=== PATIENT | female | born 2000 | race Caucasian/White ===

== ENCOUNTER 2018-04-15 12:03 | Outpatient (CLI) | payer OTHER, SELFPAY ==
--- NOTE | 2018-04-15 11:45 | DI.RAD_ITS ---
SYMPTOMS/DIAGNOSIS: FELL BACK ON ICE SITTING DOWN 1 WEEK AGO, LOW BACK PAIN, M54.5, G89.29 OTHER CHRONIC PAIN, H/O LOWER BACK INJURY LUMBAR SPINE: AP, lateral and bilateral oblique views. There are five lumbar type vertebral bodies. There is normal alignment. No acute fracture or subluxation is seen. The bones are normally mineralized. The disc spaces are well maintained. IMPRESSION: No acute fracture or subluxation in the lumbar spine.
== END 2018-04-15 12:23 ==
PROVIDERS: PCP Pediatrics; Visit Provider Pediatrics
DX: M54.5 Low back pain (principal); G89.29 Other chronic pain
CPT/HCPCS: 72110